=== PATIENT | male | born 1975 | race Caucasian/White ===

== ENCOUNTER 2020-09-27 09:44 | Emergency (ER) | payer OTHER, SELFPAY ==
--- NOTE | ~2020-09-27 | XR_ITS ---
EXAMINATION: XR foot LT min 3V EXAM DATE: 09/27/2020 10:19 INDICATION: No known recent injury provided at this time. Pain of the left foot, 5th MTP. TECHNIQUE: Left foot dorsoplantar, lateral and oblique projections obtained and reviewed. Comparison is made to prior examination from 11/07/2003. FINDINGS: Left metatarsal bones unremarkable. There are no acute fractures or dislocations identifi ed. There is no subcutaneous gas. The soft tissue is unremarkable. There are no radiopaque foreig n bodies. IMPRESSION: 1. Unremarkable XR foot LT min 3V exam. Reviewed, dictated and finalized at location A. [employer]
--- NOTE | 2020-09-27 10:04 | ED.LOWEXIN ---
HPI - Extremity Injury (Lower) General Chief Complaint: Extremity Injury, Lower Stated Complaint: Extremity Injury, Lower Time Seen by Provider: 09/27/20 10:04 Source: patient and RN notes reviewed Mode of arrival: ambulatory Limitations: no limitations History of Present Illness HPI Narrative: 44-year-old male presents to the emergency room with complaints of lateral left foot pain. States that he was walking and felt a sharp pain lateral aspect left foot, Mid 5th metatarsal. Denies any current trauma. States he has a history of a fracture in the same area. Walks with a normal gait. No bruising, swelling or signs of infection noted. Related Data Allergies Allergy/AdvReac Type Severity Reaction Status Date / Time NKDA Allergy Unknown Unknown Uncoded 09/27/20 10:09 Review of Systems Review of Systems: Narrative: CONSTITUTIONAL: Denies fever, chills, or sweats. CARDIOVASCULAR: Denies chest pain, palpitations, or edema. RESPIRATORY: Denies cough or dyspnea. GASTROINTESTINAL: Denies abdominal pain, nausea, vomiting, or diarrhea. GENITOURINARY: Denies dysuria or hematuria. SKIN: Denies rash or itching. MUSCULOSKELETAL: Denies back pain, joint pain. Lateral left foot pain NEUROLOGIC: Denies headache, numbness, or weakness. PSYCHIATRIC: Denies anxiety or depression. All other systems reviewed are negative, except as documented in HPI. PMFSH Comments At the time of my signature, I reviewed and agree with the nursing past medical, surgical, social, and family history. There is no relevant family history pertinent to the patient complaint. Exam Narrative: Exam Narrative: GENERAL: This is a well-nourished, well-developed patient, in no apparent distress. HEAD: normocephalic, atraumatic. EYES: PERRL. Sclera clear/white. Vision is grossly intact. NECK: Neck supple, non-tender without lymphadenopathy. CARDIOVASCULAR: Regular rate and rhythm without murmurs, gallops, or rubs. RESPIRATORY: Clear to auscultation. Breath sounds equal bilaterally. No wheezes, rales, or rhonchi. GASTROINTESTINAL: Abdomen soft, non-tender, nondistended. SKIN: warm, intact with no suspicious lesions or rash, good texture and turgor. NEURO: awake, alert, and oriented to person, place and time. There were no obvious focal neurologic abnormalities. EXTREMITIES: No clubbing, cyanosis, or edema. No joint tenderness, effusion, or edema noted. Tenderness to the lateral aspect mid left foot BACK: Nontender without deformity. Extrem: Ankle/foot/toe images: 1. Tenderness without swelling, bruising or signs of infection Course Vital Signs Vital signs: Vital Signs Temperature 97.3 F L 09/27/20 10:13 Pulse Rate 59 L 09/27/20 10:13 Respiratory Rate 16 09/27/20 10:13 Blood Pressure 144/87 H 09/27/20 10:13 Pulse Oximetry 100 09/27/20 10:13 Temperature 97.3 F L 09/27/20 10:13 Pulse Rate 59 L 09/27/20 10:13 Respiratory Rate 16 09/27/20 10:13 Blood Pressure 144/87 H 09/27/20 10:13 Pulse Oximetry 100 09/27/20 10:13 Reviewed. Blood pressure mildly elevated. Discussed this with patient, states that he has no history of hypertension and is looking for a primary care doctor MDM - Extremity Injury (Lower) Differential Diagnosis Differential diagnosis: Likely ankle sprain and strain and other (Foot fracture, plantar fasciitis) Imaging Data Radiologist's impression: Impressions Foot X-Ray 09/27/20 10:23 IMPRESSION: 1. Unremarkable XR foot LT min 3V exam. Critical Care Time Critical Care Time Critical Care Time: No Discharge Plan Discharge Clinical Impression: Acute foot pain Qualifiers: Laterality: left Qualified Code(s): M79.672 - Pain in left foot Patient Disposition: Home, Self-Care Condition: Stable Instructions: Antibiotic Form, Arthritis (ED), Metatarsalgia (DC) Additional Instructions: Follow-up with your primary care provider. Your blood pressure was mildly elevated may need further ev
[2020-09-27 10:13] VITALS: BP 144/87; PULSE 59; RESP 16; TEMP 36.3; O2SAT 100
== END 2020-09-27 11:02 | disposition home or self-care (01) ==
PROVIDERS: Emergency Provider Nurse Practitioner
DX: M25.572 Pain in left ankle and joints of left foot (principal)
CPT/HCPCS: 73630; 99213; G0463